=== PATIENT | female | born 1995 | race Caucasian/White ===

== ENCOUNTER 2017-04-30 19:43 | Inpatient (IN) | payer OTHER ==
[~2017-04-30] VITALS: Ht 160 cm; Wt 87.8 kg
[~2017-04-30 19:43] MED LIST: FERR SULFATE325 MG PO; IMITREX25 MG PO; IRON325 M1 PO; PRE-NATAL PO; PRENATAL1 TAB PO; SPRINTEC 2828 DAY PO
[2017-04-30 20:30] VITALS: BP 124/66
[2017-04-30 21:04] LABS: HEMATOCRIT 36.7 % (37.0-47.0); HEMOGLOBIN 12.7 g/dl (12.0-16.0); IMMATURE GRANULOCYTES 0.5 % (0.0-1.0); MEAN CORPUSCULAR HGB 28.7 pG CALC (26.0-32.0); MEAN CORPUSCULAR HGB CONC 34.6 g/L CALC (32.0-36.0); NEUT# 8.82 thou/uL (2.00-7.15); RED BLOOD COUNT 4.42 mill/uL (4.20-5.60); RED CELL DISTRI WIDTH 14.1 % (11.5-15.5)
[2017-04-30 21:30] VITALS: BP 119/69
[2017-04-30 21:40] LABS: ALBUMIN 3.7 g/dL (3.2-5.0); ALKALINE PHOSPHATASE 201 u/l (38-126); ANION GAP 15 (6-22 (CALC)); BILIRUBIN, TOTAL 0.5 mg/dL (0.0-1.4); BUN 5 mg/dL (7-17); BUN/CREATININE RATIO 12 (12-20 (CALC)); CALCIUM 9.4 mg/dL (8.4-10.2); CARBON DIOXIDE 20 mmol/l (22-30); CHLORIDE 107 mmol/l (95-108); CREATININE 0.4 mg/dL (0.5-1.0); GFR > 60 ML/MIN (>=60 (CALC)); GFR FOR AFR.AMER. > 60 ML/MIN (>=60 (CALC)); GLUCOSE 88 mg/dL (65-105); SGOT/AST 19 u/l (14-36); SGPT/ALT 30 u/l (9-52); SODIUM 137 mmol/l (137-146)
[2017-04-30 21:42] LABS: TOTAL PROTEIN 6.6 g/dL (6.3-8.2)
[2017-04-30 21:46] VITALS: BP 115/81
[2017-04-30 22:09] LABS: URINE BILIRUBIN - DIPSTICK NEGATIVE (NEGATIVE); URINE BLOOD DIPSTICK TRACE-INTACT (NEGATIVE); URINE CLARITY CLEAR; URINE COLOR YELLOW; URINE GLUCOSE - DIPSTICK NEGATIVE (NEGATIVE); URINE KETONE NEGATIVE (NEGATIVE); URINE LEUK ESTERASE NEGATIVE (NEGATIVE); URINE NITRITE - DIPSTICK NEGATIVE (Negative); URINE PH 6.5 (4.5-8.0); URINE PROTEIN - DIPSTICK NEGATIVE (NEG-TRACE); URINE UROBILINOGEN - DIPSTICK 0.2 E.U./dL (0.2)
[2017-04-30 22:15] LABS: BARBITURATES NEGATIVE (NEGATIVE); COCAINE NEGATIVE (NEGATIVE); METHADONE NEGATIVE (NEGATIVE); OXCYCODONE NEGATIVE (NEGATIVE); TETRAHYDROCANNABIONOL NEGATIVE (NEGATIVE); TRICYLIC ANTIDEPRESSANTS NEGATIVE (NEGATIVE)
[2017-04-30 23:15] VITALS: BP 120/68
[2017-04-30 23:45] VITALS: BP 121/66
[2017-05-01] VITALS (10 sets, daily range): BP systolic 107–133; BP diastolic 50–81
[2017-05-02 05:49] LABS: HEMATOCRIT 35.5 % (37.0-47.0); HEMOGLOBIN 12.1 g/dl (12.0-16.0); IMMATURE GRANULOCYTES 1.7 % (0.0-1.0); MEAN CELL VOLUME 83.5 fL CALC (80.0-100.0); MEAN CORPUSCULAR HGB 28.5 pG CALC (26.0-32.0); MEAN CORPUSCULAR HGB CONC 34.1 g/L CALC (32.0-36.0); NEUT# 8.83 thou/uL (2.00-7.15); RED BLOOD COUNT 4.25 mill/uL (4.20-5.60); RED CELL DISTRI WIDTH 14.5 % (11.5-15.5)
[2017-05-02 08:00] VITALS: BP 108/60
[2017-05-02] MEDS ORDERED: IBUPROFEN600 MG PO (08:58)
== END 2017-05-02 10:40 | disposition home or self-care (01) | DRG 775 ==
LOC: OBOP 19:43 → EDSTATUS 19:48 → OB 19:53 → OBOP 19:53 → OB 19:54 → OBOP 20:29 → OB 20:30
PROC: 10E0XZZ Delivery of Products of Conception, External Approach (ICD-10-PCS; principal; 2017-05-01)
PROC: 0UQGXZZ Repair Vagina, External Approach (ICD-10-PCS; 2017-05-01)
DX: O71.4 Obstetric high vaginal laceration alone (principal); Z37.0 Single live birth; Z3A.39 39 weeks gestation of pregnancy

== ENCOUNTER 2017-06-28 17:53 | Emergency (ER) | payer OTHER ==
[~2017-06-28] VITALS: Ht 160 cm; Wt 77.6 kg
[~2017-06-28 17:53] MED LIST changes: +IBUPROFEN600 MG PO
[2017-06-28] MEDS ORDERED: ZITHROMAX250 MG PO (18:01)
[2017-06-28 18:18] VITALS: BP 118/84
[2017-06-28] MEDS ORDERED: AUGMENTIN875TAB PO (18:27)
== END 2017-06-28 18:47 | disposition home or self-care (01) | DRG 153 ==
LOC: ED 17:53
DX: J03.90 Acute tonsillitis, unspecified (principal); R50.9 Fever, unspecified

== ENCOUNTER 2021-09-02 22:11 | Emergency (ER) | payer BC ==
[~2021-09-02] VITALS: Ht 160 cm; Wt 76.0 kg
[~2021-09-02 22:11] MED LIST changes: +AUGMENTIN875TAB PO; +ZITHROMAX250 MG PO
[2021-09-02 22:37] LABS: HEMATOCRIT 30.8 % (37.0-47.0); HEMOGLOBIN 10.2 g/dl (12.0-16.0); IMMATURE GRANULOCYTES 0.7 % (0.0-5.0); MEAN CELL VOLUME 84.6 fL CALC (80.0-100.0); MEAN CORPUSCULAR HGB CONC 33.1 g/dL CAL (32.0-36.0); NEUT# 6.67 thou/uL (2.00-7.15); RED BLOOD COUNT 3.64 mill/uL (4.20-5.60)
[2021-09-02 22:51] LABS: ALBUMIN 3.5 g/dL (3.2-5.0); BILIRUBIN, TOTAL 0.6 mg/dL (0.0-1.4); BUN 11 mg/dL (7-17); BUN/CREATININE RATIO 22 (12-20 (CALC)); CARBON DIOXIDE 21 mmol/l (22-30); CHLORIDE 112 mmol/l (95-108); CREATININE 0.5 mg/dL (0.5-1.0); GFR > 60 ML/MIN (>=60 (CALC)); GFR FOR AFR.AMER. > 60 ML/MIN (>=60 (CALC)); SGOT/AST 20 u/l (14-36); SODIUM 136 mmol/l (137-146); TOTAL PROTEIN 6.5 g/dL (6.3-8.2)
[2021-09-02 22:54] LABS: ALKALINE PHOSPHATASE 49 u/l (38-126); ANION GAP 6 (6-22 (CALC)); POTASSIUM 2.8 mmol/l (3.5-5.1)
[2021-09-02 23:06] LABS: MAGNESIUM 1.8 mg/dL (1.6-2.3)
[2021-09-02 23:19] LABS: MYOGLOBIN 20 ng/mL (0 - 62)
[2021-09-03 00:59] LABS: URINE BILIRUBIN - DIPSTICK NEGATIVE (NEGATIVE); URINE BLOOD DIPSTICK TRACE-INTACT (NEGATIVE); URINE COLOR YELLOW; URINE GLUCOSE - DIPSTICK NEGATIVE (NEGATIVE); URINE KETONE 15 mg/dL (NEGATIVE); URINE LEUK ESTERASE NEGATIVE (NEGATIVE); URINE PH 6.5 (4.5-8.0); URINE PROTEIN - DIPSTICK NEGATIVE (NEG-TRACE); URINE SPECIFIC GRAVITY 1.015; URINE UROBILINOGEN - DIPSTICK 0.2 E.U./dL (0.2)
[2021-09-03 01:03] LABS: URINE NITRITE - DIPSTICK NEGATIVE (Negative)
[2021-09-03] MEDS ORDERED: POTASSIUM CHLO20 ME1 PO (01:21)
[2021-09-03 01:26] VITALS: BP 103/59
== END 2021-09-03 01:43 | disposition home or self-care (01) | DRG 312 ==
LOC: ED 22:11
PROVIDERS: Family Medicine
DX: I95.1 Orthostatic hypotension (principal); E87.6 Hypokalemia